=== PATIENT | female | born 1985 | race Caucasian/White ===

== ENCOUNTER 2019-06-08 13:44 | Emergency (ER) | payer OTHER ==
[2019-06-08 14:08] VITALS: BP 125/55; PULSE 73; TEMP 98.2; BMI 29.0
[2019-06-08 16:24] LABS: BASO % 0.4 % (0-2.0); EOS % 0.5 % (0-4.5); HEMATOCRIT 38.2 % (32.4-45.2); HEMOGLOBIN 12.9 GM/dL (10.7-15.3); LYMPH % 23.4 % (8-40); MCH 27.1 pg (25.7-33.7); MCHC 33.8 g/dl (32.0-36.0); MEAN CELL VOLUME 80.2 fl (80-96); MEAN PLT VOLUME 8.3 fl (7.5-11.1); MONO % 4.5 % (3.8-10.2); NEUT % 71.2 % (42.8-82.8); PLATELET COUNT 290 K/MM3 (134-434); RBC 4.77 M/mm3 (3.60-5.2); RDW 17.9 % (11.6-15.6); WHITE BLOOD COUNT 8.4 K/mm3 (4.0-10.0)
[2019-06-08 16:59] LABS: ALBUMIN 3.6 g/dl (3.4-5.0); ALK PHOS 45 U/L (45-117); ANION GAP 5 MMOL/L (8-16); BILIRUBIN,TOTAL 0.3 mg/dL (0.2-1); BLOOD UREA NITROGEN 7.9 mg/dL (7-18); CALCIUM 8.5 mg/dL (8.5-10.1); CHLORIDE 105 mmol/L (98-107); CO2 25 mmol/L (21-32); CREATININE 0.6 mg/dL (0.55-1.3); GLUCOSE,RANDOM 96 mg/dL (74-106); POTASSIUM 4.2 mmol/L (3.5-5.1); SGOT/AST 8 U/L (15-37); SGPT/ALT 15 U/L (13-61); SODIUM 135 mmol/L (136-145); TOT PROT 6.8 g/dl (6.4-8.2)
[2019-06-08 16:59] LABS: EPI CELLS 0.5 /HPF (0-5/HPF); HYALINE CASTS 7 /lpf (0-8); URINE APPEARANCE CLEAR; URINE BACTERIA 26.7 /hpf (NEGATIVE); URINE BILIRUBIN NEGATIVE (NEGATIVE); URINE COLOR YELLOW; URINE GLUCOSE (UA) NEGATIVE (NEGATIVE); URINE KETONE NEGATIVE (NEGATIVE); URINE LEUK ESTERASE 2+ (NEGATIVE); URINE NITRITE NEGATIVE (NEGATIVE); URINE PROTEIN NEGATIVE (NEGATIVE); URINE UROBILINOGEN 0.2 mg/dL (0.2-1.0); URINE WBC 20 /hpf (0-5)
--- NOTE | 2019-06-08 18:23 | PDOC ---
History of Present Illness - General History Source: Patient, Family Exam Limitations: No Limitations <KatrinajasonDannie tapiaca - Last Filed: 06/11/19 19:54> <Rich Moore - Last Filed: 06/12/19 00:49> - General Chief Complaint: Vaginal Bleeding Stated Complaint: 9 W PREG/VAG BLEEDING Time Seen by Provider: 06/08/19 14:36 Past History - Travel Traveled outside of the country in the last 30 days: No Close contact w/someone who was outside of country & ill: No - Past Medical History COPD: No - Psycho Social/Smoking Cessation Hx Smoking History: Never smoked <KatrinajasonMaci atpiaecca - Last Filed: 06/11/19 19:54> <Rich Moore - Last Filed: 06/12/19 00:49> - Past Medical History Home Medications: Ambulatory Orders Cephalexin Monohydrate [Keflex -] 500 mg PO BID #14 capsule 06/08/19 Review of Systems - Review of Systems Able to Perform ROS?: Yes Comments:: 06/08/19 18:54 CONSTITUTIONAL: Absent: fever, chills, diaphoresis, generalized weakness, malaise, loss of appetite GASTROINTESTINAL: Absent: abdominal pain, abdominal distension, nausea, vomiting, diarrhea, constipation, melena, hematochezia GENITOURINARY: Present: vaginal bleeding Absent: dysuria, frequency, urgency, hesitancy, hematuria, flank pain, genital pain MUSCULOSKELETAL: Absent: myalgia, arthralgia, joint swelling SKIN: Absent: rash, itching, pallor HEMATOLOGIC/IMMUNOLOGIC: Absent: easy bleeding, easy bruising, lymphadenopathy, frequent infections NEUROLOGIC: Absent: headache, focal weakness or paresthesias, dizziness, unsteady gait, seizure, mental status changes, bladder or bowel incontinence PSYCHIATRIC: Absent: anxiety, depression, suicidal or homicidal ideation, hallucinations. Is the patient limited Bhutanese proficient: No <AgustinMaciPage - Last Filed: 06/11/19 19:54> *Physical Exam - Vital Signs Last Vital Signs Temp Pulse Resp BP Pulse Ox 98.2 F 73 19 125/55 L 100 06/08/19 14:04 06/08/19 14:04 06/08/19 14:04 06/08/19 14:04 06/08/19 14:04 - Physical Exam 06/08/19 18:55 GENERAL: Well developed, well nourished. Awake and alert. No acute distress. HEENT: Normocephalic, atraumatic. PERRLA, EOMI. No conjunctival pallor. Sclera are non- icteric. Moist mucous membranes. NECK: Supple. Full ROM. No lymphadenopathy. CARDIOVASCULAR: Regular rate and rhythm. No murmurs, rubs, or gallops. Distal pulses are 2+ and symmetric. PULMONARY: No evidence of respiratory distress. Lungs clear to auscultation bilaterally. No wheezing, rales or rhonchi. ABDOMINAL: Soft. Non-tender. Non-distended. No rebound or guarding. No organomegaly. Normoactive bowel sounds. Pelvic: External genitalia normal without lesions. Vaginal vault is with brownish curd- like discharge. Cervix is long and closed. No cervical motion tenderness. Uterus is nontender and normal in size. Adnexa are nontender and without masses. MUSCULOSKELETAL Normal range of motion at all joints. No bony deformities or tenderness. No CVA tenderness. EXTREMITIES: No cyanosis. No clubbing. No edema. No calf tenderness. SKIN: Warm and dry. Normal capillary refill. No rashes. No jaundice. NEUROLOGICAL: Alert, awake, appropriate. Cranial nerves 2-12 intact. No deficits to light touch and temperature in face, upper extremities and lower extremities. No motor deficits in the in face, upper extremities and lower extremities. Normoreflexic in the upper and lower extremities. Normal speech. Toes are down- going bilaterally. Gait is normal without ataxia. PSYCHIATRIC: Cooperative. Good eye contact. Appropriate mood and affect. = <Page Velez - Last Filed: 06/11/19 19:54> - Vital Signs Last Vital Signs Temp Pulse Resp BP Pulse Ox 98.2 F 73 19 125/55 L 100 06/08/19 14:04 06/08/19 14:04 06/08/19 14:04 06/08/19 14:04 06/08/19 14:04 <Rich Moore - Last Filed: 06/12/19 00:49> ED Treatment Course - LABORATORY CBC & Chemistry Diagram: 06/08/19 15:58 06/08/19 15:58 - ADDITIONAL ORDERS Additional order review: Laboratory Results 06/08/19 06/08/19 06/08/19 16:36 15:58 15:58 Sodium 135 L Potassium 4.2 Chloride 105 Carbon Dioxide 25 Anion Gap 5 L BUN 7.9 Creatinine 0.6 Est GFR (CKD-EPI)AfAm 139.78 Est GFR (CKD-EPI)NonAf 120.61 Random Glucose 96 Calcium 8.5 Total Bilirubin 0.3 AST 8 L ALT 15 Alkaline Phosphatase 45 Total Protein 6.8 Albumin 3.6 Beta HCG, Quant Urine Color Yellow Urine Appearance Clear Urine pH 5.0 Ur Specific Leonard 1.016 Urine Protein Negative Urine Glucose (UA) Negative Urine Ketones Negative Urine Blood 1+ H Urine Nitrite Negative Urine Bilirubin Negative Urine Urobilinogen 0.2 Ur Leukocyte Esterase 2+ H Urine WBC (Auto) 20 Urine Casts (Auto) 7 U Epithel Cells (Auto) 0.5 Urine Bacteria (Auto) 26.7 Blood Type O POSITIVE Antibody Screen Negative 06/08/19 15:58 RBC 4.77 MCV 80.2 MCHC 33.8 RDW 17.9 H MPV 8.3 Neutrophils % 71.2 Lymphocytes % 23.4 Monocytes % 4.5 Eosinophils % 0.5 Basophils % 0.4 - RADIOLOGY Radiology Studies Ordered: Category Date Time Status <14WKS US [US] Stat Ultrasound 06/08/19 14:35 Completed <Page Velez - Last Filed: 06/11/19 19:54> - LABORATORY CBC & Chemistry Diagram: 06/08/19 15:58 06/08/19 15:58 - ADDITIONAL ORDERS Additional order review: 06/08/19 16:36 Urine Culture - Final Urine - Urine Clean Catch Staphylococcus Saprophyticus 06/08/19 15:58 RBC 4.77 MCV 80.2 MCHC 33.8 RDW 17.9 H MPV 8.3 Neutrophils % 71.2 Lymphocytes % 23.4 Monocytes % 4.5 Eosinophils % 0.5 Basophils % 0.4 <Rich Moore - Last Filed: 06/12/19 00:49> Medical Decision Making - Medical Decision Making 06/08/19 18:56 The patient is a 33-year-old female, G2, P1, LMP 04/03/2019, presents to the ER with 2 days of vaginal bleeding. She notes that last night she saw some dark brown blood in the toilet. She also noticed having some dark brown blood on her panty liner this morning so she came to the ER for evaluation. She denies abdominal pain, nausea and vomiting. A/P: Vaginal bleeding and See exam section for pelvic findings. Cervix was closed. No abdominal pain on exam. Transvaginal ultrasound shows a 9-week IUP with a heart rate of 118, subchorionic hemorrhage noted. Patient with a UTI on urine exam. Given that she is we will treat with Keflex. Patient also with a curd-like discharge on her pelvic exam. We will treat this as a yeast infection in addition to the vaginal bleeding with topical Monistat. Patient is O+ Discharge home to follow-up with her FLOOR BROKER. I discussed the physical exam findings, ancillary test results and final diagnoses with the patient. I answered all of the patient's questions. The patient was satisfied with the care received and felt comfortable with the discharge plan and treatment plan. The Patient agrees to follow up with the primary care physician/specialist within 24-72 hours. Return precautions were given. <Page Velez - Last Filed: 06/11/19 19:54> - Medical Decision Making The patient was seen and evaluated in conjunction with AIXA Velez under my direct supervision, ancillary studies were reviewed. I agree with the plan as outlined by AIXA Velez . <Rich Moore - Last Filed: 06/12/19 00:49> Discharge - Discharge Information Problems reviewed: Yes - Admission No <Page Velez - Last Filed: 06/11/19 19:54> <Rich Moore - Last Filed: 06/12/19 00:49> - Discharge Information Clinical Impression/Diagnosis: Vaginal bleeding affecting early Condition: Stable Disposition: HOME - Additional Discharge Information Prescriptions: Cephalexin Monohydrate [Keflex -] 500 mg PO BID #14 capsule - Follow up/Referral Referrals: Katelyn Fitzgerald MD [Staff Physician] - - Patient Discharge Instructions Patient Printed Discharge Instructions: DI for Vaginal Bleeding Additional Instructions: You were evaluated for your vaginal bleeding today. Your ultrasound showed a single within the uterus at about 9 weeks. The heart rate was 118. The vaginal bleeding was most likely from where the implanted in the uterus. You also have a urinary tract infection and a yeast infection Please take the antibiotics as directed and finish the entire dose. Purchase Monistat vaginal cream over the counter to treat the yeast infection. Follow the dosing instructions on the bottle. Please follow-up with your FLOOR BROKER this week. Please tell them you are seen in the ER for vaginal bleeding and you need to follow-up with them. Return to the ER for increased bleeding, fever, back pain, vomiting, lightheadedness or if you have any changes in your symptoms. Usted fue evaluada por leigh sangrado vaginal hoy. Leigh ultrasonido mostr un solo embarazo dentro del tero aproximadamente a las 9 semanas. La frecuencia cardaca fue de 118. El sangrado vaginal fue ms probable de donde el embarazo se implant en el tero. Tambin tiene cesar infeccin del tracto urinario y cesar infeccin por hongos. [place] los antibiticos segn las indicaciones y termine la dosis completa. Compre la crema vaginal Monistat sin receta mdica para tratar la infeccin por levaduras. Siga las instrucciones de dosificacin en la botella. Anastasia un seguimiento con leigh obstetra / gineclogo esta semana. Dgales que le rian en la claudia de emergencias por sangrado vaginal y que necesita hacer un seguimiento con ellos. Regrese a la claudia de emergencias para aumentar el sangrado, fiebre, dolor de espalda, vmitos, aturdimiento o si tiene algn cambio en tyler sntomas. Print Language: TAJIK - Post Discharge Activity Work/Back to School Note: Back to Work
[2019-06-08 19:54] LABS: URINE RBC 3.3 /hpf (0-4)
== END 2019-06-08 19:23 | disposition home or self-care (01) ==
LOC: JER 13:44
DX: O26.891 Other specified pregnancy related conditions, first trimester (principal); O20.8 Other hemorrhage in early pregnancy; O23.41 Unspecified infection of urinary tract in pregnancy, first trimester; O98.811 Other maternal infectious and parasitic diseases complicating pregnancy, first trimester; B37.3 Candidiasis of vulva and vagina; Z3A.09 9 weeks gestation of pregnancy
CPT/HCPCS: 36415; 76801-TC; 80053; 81003; 84702; 85025; 86850; 86900; 86901; 87086; 87186; 99284-25

== ENCOUNTER 2020-01-15 08:25 | Inpatient (IN) | payer OTHER ==
[2020-01-15] MEDS ORDERED: AMPICILLIN SODIUM 2 GM VIAL ONE (09:48)
[2020-01-15] MEDS ORDERED: AMPICILLIN - 2 GM in SODIUM CHLORIDE 100 ML IVPB ONE (10:00)
[2020-01-15 10:23] LABS: BASO % 0.4 % (0-2.0); EOS % 0.5 % (0-4.5); HEMATOCRIT 36.3 % (32.4-45.2); HEMOGLOBIN 12.8 GM/dL (10.7-15.3); LYMPH % 17.1 % (8-40); MCH 30.6 pg (25.7-33.7); MCHC 35.2 g/dl (32.0-36.0); MEAN CELL VOLUME 86.8 fl (80-96); MONO % 4.9 % (3.8-10.2); NEUT % 77.1 % (42.8-82.8); PLATELET COUNT 167 K/MM3 (134-434); RBC 4.18 M/mm3 (3.60-5.2); RDW 14.6 % (11.6-15.6); WHITE BLOOD COUNT 10.6 K/mm3 (4.0-10.0)
[2020-01-15 10:26] VITALS: BMI 33.9
[2020-01-15 10:30] LABS: INR 0.91 (0.83-1.09); PROTHROMBIN TIME (PATIENT) 10.7 SEC (9.7-13.0)
[2020-01-15 10:33] LABS: ACTIVATED PTT 28.2 SECONDS (25.2-36.5)
[2020-01-15] MEDS ORDERED: AMPICILLIN SODIUM 1 GM VIAL ONE (10:47)
[2020-01-15 10:48] LABS: BLOOD UREA NITROGEN 7.8 mg/dL (7-18); CALCIUM 8.8 mg/dL (8.5-10.1); CREATININE 0.7 mg/dL (0.55-1.3)
[2020-01-15] MEDS ORDERED: OXYTOCIN 30 UNITS in 0.9% NS 30 UNIT/500 ML INFUS.BAG IVPB ONE ×2 (10:48→14:56)
[2020-01-15] MEDS: DEXTROSE 5%-LACTATED RINGERS 1,000 ML IV SCH (11:00)
[2020-01-15] MEDS: OXYTOCIN 30 UNITS in 0.9% NS 30 UNIT/500 ML INFUS.BAG IVPB SCH (11:00)
--- NOTE | 2020-01-15 11:44 | HP ---
Past Medical History - Primary Care Physician PCP:: Gabe Morrison - Admission Chief Complaint: 34yo P1 with at EGA 40w4d admitted with SROM and mild irregular contractions. History of Present Illness: SROM at 7:30am complicated by post term . GBS (+) vaginal cx. 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: Alzheimer's, CVA, Dementia, Migraine, Multiple Sclerosis, Peripheral Neuropathy, Parkinson's, Seizure, Syncope, TIA, Vertigo, Other Cardiovascular: No: AFIB, Aneurysm, Aortic Insufficiency, Aortic Stenosis, CAD, CHF, Deep Vein Thrombosis, HTN, Hyperlipdemia, VT, Mitral Insufficiency, Mitral Stenosis, Murmur, Pulmonary Hypertension, Other Pulmonary: No: Asthma, Bronchitis, Cancer, COPD, O2 Dependent, Pneumonia, Previously Intubated, Pulmonary Embolus, Pulmonary Fibrosis, Sleep Apnea, Other Gastrointestinal: No: Ascites, Cancer, Constipation, Crohn's Disease, Diverticulitis, Diverticulosis, Esophageal Varices, Gastritis, GERD, GI Bleed, Hemorrhoids, Hiatal Hernia, Inflamatory Bowel Disease, Irritable Bowel Disease, Pancreatitis, Peptic Ulcer Disease, Ulcerative Colitis, Other Hepatobiliary: No: Cirrhosis, Cholelithiasis, Cholecystitis, [place] cholithiasis, Hepatitis A, Hepatitis B, Hepatitis C, Other Renal/: No: Renal Failure, Renal Inusuff, BPH, Cancer, Hematuria, Hemodialysis, Neurogenic Bladder, Renal Calculi, UTI, Other Reproductive: No: Ectopic , Endometriosis, Fibroids, PID, Polycystic Ovary Syndrome, Postmenopausal, Other ...: 2 ...Para: 1 ...Term: 1 ...Living Children: 1 ...LMP: 04/03/19 ... Weeks Gestation by Dates: 40.5 ...EDC by Dates: 01/11/20 Heme/Onc: No: Anemia, B12 Deficiency, Bleeding Disorder, Cancer, Current Chemotherapy, Current Radiation Therapy, Hemochromatosis, Hypercoaguable State, Myeloproliferative Synd, Sickle Cell Disease, Sickle Cell Trait, Thrombocytopenia, Other Infectious Disease: No: AIDS, C-Diff, Herpes Zoster, HIV, MRSA, STD's, Tuberculosis, VREF, Other Psych: No: Addictions, Anxiety, Bipolar, Depression, Panic, Psychosis, Schizophrenia, Other Musculoskeletal: No: Bursitis, Chronic low back pain, Hemiparesis, Hemiplegia, Osteoarthritis, Paraplegia, Other Rheumatology: No: Fibromyalgia, Gout, Lupus, Rheumatoid Arthritis, Sarcoidosis, Vasculitis, Other ENT: No: Allergic Rhinitis, Sinusitis, Other Endocrine: No: Yosvany's Disease, Braham's Disease, Diabetes Insipidus, D iabetes Mellitus, Hyperparathyroidism, Hyperthyroidism, Hypothyroidism, Osteopenia, SIADH, Other Dermatology: No: Basal Cell, Cellulitis, Eczema, Melanoma, Psoriasis, Squamous Cell, Other Additional Medical History: Sickle Cell carrier - Past Surgical History Past Surgical History: Yes: None Hx Myomectomy: No Hx Transabdominal Cerclage: No - Smoking History Smoking history: Never smoked Have you smoked in the past 12 months: No - Alcohol/Substance Use Hx Alcohol Use: No History of Substance Use: reports: None - Social History Usual Living Arrangement: Yes: With Spouse, With Child Do you think of yourself as: Straight/Heterosexual ADL: Independent History of Recent Travel: No Home Medications - Allergies Allergies/Adverse Reactions: Allergies Allergy/AdvReac Type Severity Reaction Status Date / Time No Known Allergies Allergy Verified 01/15/20 10:32 - Home Medications Home Medications: Ambulatory Orders Cephalexin Monohydrate [Keflex -] 500 mg PO BID #14 capsule 06/08/19 Tablet 1 tablet PO DAILY 01/15/20 Family Medical History Family Hx Diabetes: Sister Review of Systems - Review of Systems Constitutional: reports: No Symptoms Eyes: reports: No Symptoms HENT: reports: No Symptoms Neck: reports: No Symptoms Cardiovascular: reports: No Symptoms Respiratory: reports: No Symptoms Gastrointestinal: reports: No Symptoms Genitourinary: reports: Other (Leaking clear fluid) Breasts: reports: No Symptoms Reported Musculoskeletal: reports: No Symptoms Integumentary: reports: No Symptoms Neurological: reports: No Symptoms Endocrine: reports: No Symptoms Hematology/Lymphatic: reports: No Symptoms Psychiatric: reports: No Symptoms Pain Intensity: 2 Physical Exam - Maternity Vital Signs: Vital Signs Temperature 98.1 F 01/15/20 09:44 Pulse Rate 82 01/15/20 09:44 Respiratory Rate 01/15/20 09:44 Blood Pressure 129/81 01/15/20 09:44 O2 Sat by Pulse Oximetry (%) Constitutional: Yes: Well Nourished, No Distress, Calm Eyes: Yes: WNL, Conjunctiva Clear, EOM Intact HENT: Yes: WNL, Atraumatic, Normocephalic Neck: Yes: WNL, Supple, Trachea Midline Cardiovascular: Yes: WNL, Regular Rate and Rhythm Lungs: Clear to auscultation - Abdominal Exam/OB Fundal Height: 40 Number of Fetuses: Single Presentation: Vertex Contractions: Yes Regularity: Irregular Intensity: Mild Monitor Mode: External Heart Rate (range): 120 Heart Rate Location: Midline Category: I Accelerations: Non-Uniform Decelerations: None - Vaginal Exam/OB Vaginal Bleeding: No Speculum Exam: No Dilatation (cm): 1 Effacement (%): 80 Amniotic Membrane Status: Leaking Nitrazine Test: Positive Amniotic Fluid: Yes: Clear Presentation: Vertex/Position Station: -1 - Physical Exam Musculoskeletal: Yes: WNL Extremities: Yes: WNL Edema: No Deep Tendon Reflex Grade: Normal +2 ...Motor Strength: WNL Psychiatric: Yes: WNL, Alert, Oriented - Labs Lab Results: CBC, BMP 01/15/20 09:53 01/15/20 09:53 Hemorrhage Risk Assessment - Risk Factors Medium Risk Factors: Yes: None High Risk Factors: Yes: None Risk Score: 1 Risk Level: Medium Risk Imaging - Results Ultrasound: Report Reviewed Assessment/Plan 34yo P1 with at EGA 40w4d admitted with SROM and mild irregular contractions. The pt is not in labor. Fetus with category I tracing. Plan to augment contractions with pitocin. Risks, benefits, alternatives of labor augme ntation were discussed. Radha Hernández translated in Kittitian. Plan of care explained and the pt agreed to proceed.
[2020-01-15] MEDS ORDERED: PROMETHAZINE HCL 25 MG/1 ML VIAL ONE (12:53)
[2020-01-15] MEDS ORDERED: BUTORPHANOL TARTRATE 2 MG/ML VIAL ONE (12:53)
[2020-01-15] MEDS: AMPICILLIN - 1 GM in SODIUM CHLORIDE 100 ML IVPB SCH (14:00)
[2020-01-15] MEDS ORDERED: LIDOCAINE HCL 1% PRESERVATIVE FREE - 30ML VIAL ONE (14:17)
[2020-01-15] MEDS: OXYTOCIN 20 UNITS in 0.9% NS 20 UNIT/1,000 ML INFUS.BAG IV SCH (14:25)
[2020-01-15] MEDS ORDERED: BENZOCAINE 20% 57 GM BOTTLE TP PRN (14:43)
[2020-01-15] MEDS ORDERED: BENZOCAINE 28 GM HEMORRHOIDAL OINTMENT TP PRN (14:43)
[2020-01-15] MEDS ORDERED: METHYLERGONOVINE MALEATE 0.2 MG/1 ML AMP IM PRN (14:43)
[2020-01-15] MEDS ORDERED: WITCH HAZEL 50% (TUCKS) 40 PAD/JAR PAD TP PRN (14:43)
[2020-01-15] MEDS ORDERED: BISACODYL 10 MG SUPP.RECT RC PRN (14:43)
--- NOTE | 2020-01-15 14:47 | PN ---
Delivery - Delivery Vaginal Delivery: Spontaneous Type of Anesthesia: Local Episiotomy/Laceration: Midline (with 2 chromic, EBL 300cc , no complication headon pernium, head deliverd ,nasopharynx suctioned , ant and post shoulder delivered with no difficulty, live baby girl , 9/9 , placenta complete, median episiotomy in 3 layers, no complication, baby bonded with mom . no complication) Delivery, Single - [place] Feeding Plan Initial Plan: Elected not to breastfeed exclusively throughout hospitalization
[2020-01-15] MEDS ORDERED: OXYTOCIN 10 UNITS/ML VIAL ONE (14:56)
[2020-01-15] MEDS ORDERED: OXYTOCIN 10 UNITS/ML VIAL IM ONE (14:57)
[2020-01-15 15:02] LABS: CORD BASE EXCESS -4.7 mmol/L (0-2); CORD HCO3 21.5 mmHg (20-29); CORD PCO2 43.5 mmHg (30-78); CORD pH 7.311 (7.14-7.44)
[2020-01-15 15:05] LABS: CORD BASE EXCESS -6.1 mmol/L (0-2); CORD HCO3 21.9 mmHg (20-29); CORD PCO2 53.3 mmHg (30-78); CORD pH 7.232 (7.14-7.44)
[2020-01-15] MEDS ORDERED: OXYTOCIN 20 UNITS in 0.9% NS 20 UNIT/1,000 ML INFUS.BAG IV ONE (16:21)
[2020-01-15] MEDS: FERROUS SO4 325 MG TABLET (FP) PO SCH (17:46)
--- OUTSIDE RECORDS SUMMARY | 2020-01-15 18:33 | XMS ---
:1985 Author Organization [facility] Support Name Relationship Address Phone UE, UNEMPLOYED Unavailable Unavailable Unavailable UE Unavailable Unavailable Unavailable RON BAEZ [address] [address] Re-disclosure Warning The records that you are about to access may contain information from federally- assisted alcohol or drug abuse programs. If such information is present, then the following federally mandated warning applies: This information has been disclosed to you from records protected by federal confidentiality rules (42 CFR part 2). The federal rules prohibit you from making any further disclosure of this information unless further disclosure is expressly permitted by the written consent of the person to whom it pertains or as otherwise permitted by 42 CFR part 2. A general authorization for the release of medical or other information is NOT sufficient for this purpose. The Federal rules restrict any use of the information to criminally investigate or prosecute any alcohol or drug abuse patient.The records that you are about to access may contain highly sensitive health information, the redisclosure of which is protected by Article 27-F of the [place] Public Health law. If you continue you may haveaccess to information: Regarding HIV / AIDS; Provided by facilities licensed or operated by the [place] [employer] Office of Mental Health; or Provided by the [place] [employer] Office for People With Developmental Disabilities. If such information is present, then the following [employer] mandated warning applies: This information has been disclosed to you from confidential records which are protected by state law. State law prohibits you from making any further disclosure of this information without the specific written consent of the person to whom it pertains, or as otherwise permitted by law. Any unauthorized further disclosure in violation of state law may result in a fine or chcf sentence or both. A general authorization for the release of medical or other information is NOT sufficient authorization for further disclosure. Insurance Providers Payer name Policy type Policy ID Covered Covered alliance party's Policy P igor / Coverage alliance party ID relationship to Butts Inf ormation type butts A[employer]ITY [id number] SP [id number] ESSENTIAL PLAN 3 4 Results ID Date Data Source [id number] 12/22/2019 08:19:00 PM EDT [facility] Name Value Range Interpretation Description Data Sup porting Code Source(s) Document(s ) SARS [facility] coronavirus 2 RNA This lab was ordered by [facility] and reported by [facility]. Procedure
[2020-01-15] MEDS: ACETAMINOPHEN 325 MG TABLET (FP) PO PRN (21:42)
[2020-01-15] MEDS: IBUPROFEN 600 MG TABLET (FP) PO PRN (21:42)
[2020-01-16 08:47] LABS: BASO % 0.3 % (0-2.0); EOS % 0.5 % (0-4.5); HEMOGLOBIN 11.5 GM/dL (10.7-15.3); LYMPH % 19.8 % (8-40); MCHC 35.8 g/dl (32.0-36.0); MEAN CELL VOLUME 86.5 fl (80-96); MEAN PLT VOLUME 8.9 fl (7.5-11.1); NEUT % 73.4 % (42.8-82.8); PLATELET COUNT 146 K/MM3 (134-434); RBC 3.71 M/mm3 (3.60-5.2); RDW 14.7 % (11.6-15.6); WHITE BLOOD COUNT 9.3 K/mm3 (4.0-10.0)
[2020-01-16] MEDS: PRENATAL VITAMINS W/ FOLIC ACID TABLET (FP) PO SCH (09:04)
[2020-01-16] MEDS: FERROUS SO4 325 MG TABLET (FP) PO SCH ×2 (09:04→17:04)
[2020-01-16] MEDS: DEXTROSE 5%-LACTATED RINGERS 1,000 ML IV SCH (12:39)
[2020-01-16] MEDS: IBUPROFEN 600 MG TABLET (FP) PO PRN (19:57)
[2020-01-16] MEDS: ACETAMINOPHEN 325 MG TABLET (FP) PO PRN (19:59)
[2020-01-16] MEDS: OXYTOCIN 30 UNITS in 0.9% NS 30 UNIT/500 ML INFUS.BAG IVPB SCH (21:35)
[2020-01-16] MEDS: OXYTOCIN 20 UNITS in 0.9% NS 20 UNIT/1,000 ML INFUS.BAG IV SCH (21:35)
[2020-01-16] MEDS: AMPICILLIN - 1 GM in SODIUM CHLORIDE 100 ML IVPB SCH (21:38)
[2020-01-16] MEDS ORDERED: SENNOSIDES/DOCUSATE COMBO (SENNA PLUS) TABLET (UD) PO PRN (22:00)
[2020-01-17] MEDS: FERROUS SO4 325 MG TABLET (FP) PO SCH (08:59)
[2020-01-17] MEDS: PRENATAL VITAMINS W/ FOLIC ACID TABLET (FP) PO SCH (10:41)
[2020-01-17 11:04] VITALS: BP 125/79; PULSE 83; TEMP 98.3
--- NOTE | 2020-01-17 11:12 | PN ---
Post Progress Note - Subjective Subjective: Patient without acute complaints. Reports tolerating oral intake without nausea or vomiting. Ambulating without dizziness. Denies fevers or chills. Pain well controlled with oral pain medication. Pumping/breast feeding without issue. Post Day: 2 Type of Delivery: Vital Signs: Vital Signs Temperature 98.3 F 01/17/20 10:00 Pulse Rate 83 01/17/20 10:00 Respiratory Rate 18 01/17/20 10:00 Blood Pressure 125/79 01/17/20 10:00 O2 Sat by Pulse Oximetry (%) Breast Exam: Yes: Soft Uterus: Yes: Fundus Firm, Fundus below umbilicus, Non-tender Abdomen/GI: Yes: Abdomen soft, Tolerating PO Lochia: Yes: Rubra Lochia, amount: Small Extremities: Yes: Calves non-tender Perineum: Yes: Intact Activity: Ambulating - Labs Labs: CBC WBC 9.3 K/mm3 (4.0-10.0) 01/16/20 07:36 RBC 3.71 M/mm3 (3.60-5.2) 01/16/20 07:36 Hgb 11.5 GM/dL (10.7-15.3) 01/16/20 07:36 Hct 32.0 % (32.4-45.2) L 01/16/20 07:36 MCV 86.5 fl (80-96) 01/16/20 07:36 MCH 31.0 pg (25.7-33.7) 01/16/20 07:36 MCHC 35.8 g/dl (32.0-36.0) 01/16/20 07:36 RDW 14.7 % (11.6-15.6) 01/16/20 07:36 Plt Count 146 K/MM3 (134-434) 01/16/20 07:36 MPV 8.9 fl (7.5-11.1) 01/16/20 07:36 Absolute Neuts (auto) 6.8 K/mm3 (1.5-8.0) 01/16/20 07:36 Neutrophils % 73.4 % (42.8-82.8) 01/16/20 07:36 Lymphocytes % 19.8 % (8-40) 01/16/20 07:36 Monocytes % 6.0 % (3.8-10.2) 01/16/20 07:36 Eosinophils % 0.5 % (0-4.5) 01/16/20 07:36 Basophils % 0.3 % (0-2.0) 01/16/20 07:36 Nucleated RBC % 0 % (0-0) 01/16/20 07:36 Assessment/Plan 34yo P2 s/p , doing well stable, afebrile. Asymptomatic for anemia. care instructions reviewed. Continue routine care. Ambulation encouraged Discharge instruction reviewed.
--- NOTE | 2020-01-17 11:15 | DS ---
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 Vital Signs: Vital Signs Temperature 98.3 F 01/17/20 10:00 Pulse Rate 83 01/17/20 10:00 Respiratory Rate 18 01/17/20 10:00 Blood Pressure 125/79 01/17/20 10:00 O2 Sat by Pulse Oximetry (%) Constitutional: Yes: Well Nourished, No Distress, Calm Eyes: Yes: WNL, Conjunctiva Clear, EOM Intact HENT: Yes: WNL, Atraumatic, Normocephalic Neck: Yes: WNL, Supple, Trachea Midline Cardiovascular: Yes: WNL, Regular Rate and Rhythm Respiratory: Yes: WNL, Regular, CTA Bilaterally Gastrointestinal: Yes: WNL, Normal Bowel Sounds, Soft ...Rectal Exam: Yes: Deferred Renal/: Yes: WNL Internal Exam Deferred: Yes ....Post : Yes: Uterus firm, Uterus non-tender, Slight lochia rubra Breast(s): Yes: WNL Musculoskeletal: Yes: WNL Extremities: Yes: WNL Edema: Yes Edema: LLE: Trace, RLE: Trace Integumentary: Yes: WNL Neurological: Yes: WNL, Alert, Oriented ...Motor Strength: WNL Psychiatric: Yes: WNL, Alert, Oriented Labs: CBC, BMP 01/16/20 07:36 01/15/20 09:53 Delivery - Delivery Vaginal Delivery: No Problems, Spontaneous Type of Anesthesia: Local Episiotomy/Laceration: Midline EBL (cc): 300 Delivery, Single - Stages of Labor Date 1st Stage Initiatied: 01/15/20 Time 1st Stage Initiated: 04:00 Date 2nd Stage Initiated: 01/15/20 Time 2nd Stage Initiated: 14:05 Date of Delivery: 01/15/20 Time of Delivery: 14:20 Time Placenta Delivered: 14:25 Placenta: Yes: Spontaneous, Normal Configuration - Condition of Infant Maintenance Porter/Lead Fire Protection Engineer Present: No Infant Gender: Female Weight: 3.827 kg Position: Left Total Hours ROM (Hrs/Mins): 6H50M - 1 Minute Total Score: 9 5 Minutes Total Score: 9 - Feeding Plan Initial Plan: Elected not to breastfeed exclusively throughout hospitalization Benefits of Exclusively reinforced: Yes Discharge Summary Problems reviewed: Yes Reason For Visit: LABOR ADMISSION Labor at 40w4d Procedures: Principal: GARRICK Hospital Course: Normal recovery Plan of Treatment: Normal recovery, breast feeding Goals: Normal recovery, breast feeding Condition: Good - Instructions Diet, Activity, Other Instructions: Physical activity Resume your normal everyday activity as tolerated no heavy lifting or exercise until seen by your surgeon. You may walk unlimited al of and climb stairs. You may resume driving the car when you feel safe and comfortable behind the wheel. No sexual activity as instructed. Wound care If you have a bandage, leave it on, and keep dry for 48-72 hours. After that time discard the outer bandage. If they are tapes on the skin under the out of bandage leave them in place. They will peel off in the next 7 to 10 days. Do Not Peel them off. You may shower the day after surgery. If there are tapes present on the skin, you may shower over them. Diet There are no dietary restrictions. Eat healthy, high-fiber foods. Drink 6 to 8 glasses of liquid each day. This will assist in keeping your bowels are regular. Pain management You may take Tylenol or acetaminophen or Ibuprofen (for example, Motrin, Advil etc.) from my pain prescription medication is ordered should be taken as prescribed for moderate to severe pain. Call MD for any of the following: Severe pain not relieved by medication Fever of 101 or higher Excessive bleeding or drainage on dressing Inability to urinate Referrals: Gabe Morrison MD [Staff Physician] - Disposition: HOME - Home Medications Comprehensive Discharge Medication List: Ambulatory Orders Cephalexin Monohydrate [Keflex -] 500 mg PO BID #14 capsule 06/08/19 Tablet 1 tablet PO DAILY 01/15/20 Prescription Drug Monitoring Program (I-STOP) results: I-STOP not reviewed
== END 2020-01-17 14:25 | disposition home or self-care (01) | DRG 560 ==
LOC: JLDR 08:25 → J3W 16:07
PROVIDERS: ADMIT Obstetrics & Gynecology; ATTEND Obstetrics & Gynecology
PROC: 10E0XZZ Delivery of Products of Conception, External Approach (ICD-10-PCS; principal; 2020-01-15)
PROC: 0W8NXZZ Division of Female Perineum, External Approach (ICD-10-PCS; 2020-01-15)
DX: O48.0 Post-term pregnancy (principal); O42.02 Full-term premature rupture of membranes, onset of labor within 24 hours of rupture; Z3A.40 40 weeks gestation of pregnancy; Z37.0 Single live birth; O99.824 Streptococcus B carrier state complicating childbirth
CPT/HCPCS: 36415; 36600; 80048; 82803; 85025; 85610; 85730; 86780; 86850; 86900; 86901; 87389; U0003